=== PATIENT | male | born 1980 | race Hispanic/Latino ===

== ENCOUNTER 2018-03-15 07:41 | Emergency (ER) | payer OTHER ==
[~2018-03-15] VITALS: Ht 180.3 cm; Wt 72.6 kg
[~2018-03-15 07:41] MED LIST: BACTROBAN15 GM TOP; DICLOXACILLIN500 M2 PO
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
[2018-03-15] MEDS ORDERED: IBUPROFEN800 M1 PO (08:54)
[2018-03-15] MEDS ORDERED: CYCLOBENZAPRINE10 M1 PO (08:54)
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
[2018-03-15 09:51] VITALS: BP 136/88
== END 2018-03-15 09:52 ==
LOC: ERH 07:41
DX: S16.1XXA Strain of muscle, fascia and tendon at neck level, initial encounter (principal); R51 Headache; V49.50XA Passenger injured in collision with unspecified motor vehicles in traffic accident, initial encounter
CPT/HCPCS: 72050